=== PATIENT | male | born 1940 | race Caucasian/White ===

== ENCOUNTER 2020-08-28 05:55 | Day surgery (SDC) | payer MEDICARE, OTHER ==
[2020-08-28] MEDS ORDERED: fentaNYL 100 MCG/2 ML SDV IV ONE ×3 (05:56→07:06)
[2020-08-28] MEDS ORDERED: Midazolam 1 MG/ML 2 ML SDV IV ONE ×3 (05:56→07:07)
[2020-08-28] MEDS ORDERED: fentaNYL 100 MCG/2 ML SDV ONE (06:03)
[2020-08-28] MEDS ORDERED: Midazolam 1 MG/ML 2 ML SDV ONE (06:03)
[2020-08-28] MEDS ORDERED: Dextrose 5%-0.45% NaCl 1,000 ML IV SCH (06:15)
--- NOTE | 2020-08-28 08:11 | OR ---
DATE: 08/28/2020 PROCEDURE: Esophagogastroduodenoscopy and multiple pinch biopsies. INSTRUMENT USED: GIF-HQ190 Olympus video panendoscope. PREMEDICATIONS: No oral or topical anesthesia used. Fentanyl 100 mcg intravenous, Versed 1.5 mg intravenous. Nasal O2 cannula. The procedure was done under pulse oximetry, BP recording, and cardiac sonographer. INDICATION: The patient with persistent heartburn as well as dyspepsia, unexplained and not responsive to medical measures, on high-dose PPI. Esophagogastroduodenoscopy is performed for detection of any active erosive lesions, Rowe esophagus and/or malignancy also under consideration, H. pylori status to be determined, endoscopic hemostasis therapy if needed. The scope was passed with ease. Adequate visualization of the esophagus was made from proximal to distal areas. No upper esophageal lesions identified. No distal esophageal stricture. No uphill or downhill esophageal varices. No Rita- Nieto tear. No evidence of erosive esophagitis by [place] criteria. No esophageal polyp or tumor mass identified. Sliding hiatal hernia was noted. No proximal gastric varices noted. Gastric fundus examination by retroflexion showed numerous diminutive benign appearing polyps. No gastric ulcer, malignant mass, or vascular ectasia identified. Duodenal bulb showed no ulcer. Visualized second part of the duodenum was unremarkable. Multiple pinch biopsies were taken from the gastric antrum and proximal body and sent for PyloriTek test for H. pylori, and if negative in an hour, the tissue is to be sent for histopathology. No bleeding was noted from any of the visualized areas at the completion of examination. IMPRESSION: 1. Sliding hiatal hernia. 2. Diminutive gastric fundus polyps. The patient tolerated the procedure well. [facility] /[id number]
[2020-08-28 10:43] VITALS: BP 149/81; PULSE 71
== END 2020-08-28 09:20 | disposition home or self-care (01) ==
LOC: DL.ENDO 05:55
PROVIDERS: ATTEND Internal Medicine Gastroenterology
DX: K31.7 Polyp of stomach and duodenum (principal); K44.9 Diaphragmatic hernia without obstruction or gangrene; I10 Essential (primary) hypertension; E78.00 Pure hypercholesterolemia, unspecified; R73.9 Hyperglycemia, unspecified; K21.9 Gastro-esophageal reflux disease without esophagitis; Z98.890 Other specified postprocedural states
CPT/HCPCS: 87077; J2250; J3010; J7042

== ENCOUNTER 2023-08-24 05:19 | Day surgery (SDC) | payer MEDICARE, OTHER ==
[2023-08-24] MEDS ORDERED: fentaNYL 100 MCG/2 ML SDV IV ONE (05:20)
[2023-08-24] MEDS ORDERED: Midazolam 1 MG/ML 2 ML SDV IV ONE (05:20)
[2023-08-24] MEDS: Dextrose 5%-0.45% NaCl 1,000 ML IV SCH (05:40)
[2023-08-24] MEDS ORDERED: Midazolam 1 MG/ML 2 ML SDV ONE (06:13)
[2023-08-24] MEDS ORDERED: fentaNYL 100 MCG/2 ML SDV ONE (06:13)
[2023-08-24] MEDS: fentaNYL 100 MCG/2 ML SDV IV ONE ×2 (06:28→06:29)
[2023-08-24] MEDS: Midazolam 1 MG/ML 2 ML SDV IV ONE ×6 (06:29→06:48)
[2023-08-24 08:22] VITALS: BP 143/99; PULSE 75
== END 2023-08-24 08:20 | disposition home or self-care (01) ==
LOC: DL.ENDO 05:19
PROVIDERS: ATTEND Internal Medicine Gastroenterology
DX: D12.4 Benign neoplasm of descending colon (principal); K57.30 Diverticulosis of large intestine without perforation or abscess without bleeding; I10 Essential (primary) hypertension; E78.00 Pure hypercholesterolemia, unspecified; Z79.899 Other long term (current) drug therapy
CPT/HCPCS: 45385; J2250; J3010; J7042; 88305

== ENCOUNTER 2023-09-07 06:44 | Day surgery (SDC) | payer MEDICARE, OTHER ==
[~2023-09-07 06:44] MED LIST: Midazolam 1 MG/ML 2 ML SDV ONE; fentaNYL 100 MCG/2 ML SDV ONE
[2023-09-07] MEDS: Dextrose 5%-0.45% NaCl 1,000 ML IV SCH (06:57)
[2023-09-07] MEDS: fentaNYL 100 MCG/2 ML SDV IV ONE ×3 (07:03→07:07)
[2023-09-07] MEDS: Midazolam 1 MG/ML 2 ML SDV IV ONE ×3 (07:05→07:08)
[2023-09-07 08:32] VITALS: BP 146/79; PULSE 51
== END 2023-09-07 08:50 | disposition home or self-care (01) ==
LOC: DL.ENDO 06:44
PROVIDERS: ATTEND Internal Medicine Gastroenterology
DX: K31.819 Angiodysplasia of stomach and duodenum without bleeding (principal); K31.7 Polyp of stomach and duodenum; I10 Essential (primary) hypertension; E78.00 Pure hypercholesterolemia, unspecified; Z79.899 Other long term (current) drug therapy
CPT/HCPCS: 43239; 87077; 88305; J2250; J3010; J7042